=== PATIENT | male | born 1940 | race Caucasian/White ===

== ENCOUNTER 2018-07-17 07:35 | Emergency (ER) | payer MEDICARE, OTHER ==
[~2018-07-17] VITALS: Ht 188 cm; Wt 77.1 kg
--- OUTSIDE RECORDS SUMMARY | ~2018-07-17 | XMS | Encounter Summary ---
Demographics + + + | Address | [address] | | | [place] [address] | + + + | Home Phone | | + + + | Preferred Language | Unknown | + + + | Marital Status | | + + + | Faith Affiliation | 1077 | + + + | Race | Unknown | + + + | Ethnic Group | Unknown | + + + Author + + + | Author | [facility] | + + + | Organization | [facility] | + + + | Address | Unknown | + + + | Phone | Unavailable | + + + Support + + + + + | Name | Relationship | Address | Phone | + + + + + | Terri Vasquez | ELOISE | [address] | | | | | [place] | | | | | [address] | | + + + + + Care Team Providers + +------+ + | Care Furniture Sander Name | Role | Phone | + +------+ + | Man Rust MD | PCP | | + +------+ + Encounter Details +--------+ + + + + | Date | Type | Department | Care Team | Description | +--------+ + + + + | 05/31/ | Documentati | Pierre | Farideh Mccarty, | | | 2019 | on Only | [facility] | [address] | | | | | [address] | [place] | | | | | [place] | [address] | | | | | [address] | | | | | | [phone] | | | +--------+ + + + + Social History + +-------+ +--------+ + | Tobacco Use | Types | Packs/Day | Years | Date | | | | | Used | | + +-------+ +--------+ + | Former Smoker | | | | Quit: 08/28/1996 | + +-------+ +--------+ + + +---+---+---+ | Smokeless Tobacco: | | | | | Current User | | | | + +---+---+---+ + + +---------+ + | Alcohol Use | Drinks/We | oz/Week | Comments | | | ek | | | + + +---------+ + | Yes | | | | + + +---------+ + + + + | Sex Assigned at | Date Recorded | | | | + + + | Not on file | | + + + as of this encounter Plan of Treatment +--------+---------+ + + + | Date | Type | Specialty | Care Team | Description | +--------+---------+ + + + | 09/17/ | Office | Neurology | Farideh Mccarty, | | | 2019 | Visit | | MD Wendy Vasquez | | | | | | [place] | | | | | | [phone] | | | | | | | | +--------+---------+ + + + as of this encounter Visit Diagnoses Not on filein this encounter"
--- OUTSIDE RECORDS SUMMARY | ~2018-07-17 | XMS | Clinical Summary ---
Demographics + + + | Address | [address] | | | [place] [address] | + + + | Home Phone | | + + + | Preferred Language | Unknown | + + + | Marital Status | | + + + | Mandaeism Affiliation | 1077 | + + + | Race | Unknown | + + + | Ethnic Group | Unknown | + + + Author + + + | Author | [facility] | | | and [place] | + + + | Organization | [facility] | | | and [place] | + + + | Address | Unknown | + + + | Phone | Unavailable | + + + Support + + + + + | Name | Relationship | Address | Phone | + + + + + | Terri Vasquez | ELOISE | Unknown | | + + + + + | Mike Vasquez | ECON | Unknown | | + + + + + | Terri Vasquez | ECON | [address] | | | | | [place] | | | | | [address] | | + + + + + Care Team Providers + +------+ + | Care Intake Clinician Name | Role | Phone | + +------+ + | Man Rust MD | PP | Unavailable | + +------+ + Allergies + + + + + + | Active Allergy | Reactions | Severity | Noted | Comments | | | | | Date | | + + + + + + | Levofloxacin | Other (See Comments) | | 11/08/19 | Reaction not | | | | | 18 | specified in outside | | | | | | medical records | + + + + + + Medications + + + +---------+------+------+-------+ | Medication | Sig | Dispensed | Refills | Star | End | Statu | | | | | | t | Date | s | | | | | | Date | | | + + + +---------+------+------+-------+ | lovastatin | Take 20 mg by mouth | | 0 | 09/1 | | Activ | | (MEVACOR) 20 mg | Daily. | | | 3/20 | | e | | tablet | | | | 12 | | | + + + +---------+------+------+-------+ | | 1 drop into each eye | | 0 | 09/1 | | Activ | | brimonidine-timolol | twice daily | | | 3/20 | | e | | (COMBIGAN) 0.2-0.5% | | | | 12 | | | | ophthalmic solution | | | | | | | + + + +---------+------+------+-------+ | allopurinol | Take 300 mg by mouth | | 0 | 09/1 | | Activ | | (ZYLOPRIM) 300 mg | 2 times daily. | | | 3/20 | | e | | tablet | | | | 12 | | | + + + +---------+------+------+-------+ | amLODIPine | Take 5 mg by mouth | | 0 | 05/3 | | Activ | | (NORVASC) 5 mg | Daily. | | | 04/01 | | e | | tablet | | | | 12 | | | + + + +---------+------+------+-------+ | aspirin (ASPIRIN | Take 81 mg by mouth | | 0 | 11/11 | | Activ | | LOW DOSE) 81 MG | Daily. | | | 05/30 | | e | | tablet | | | | 12 | | | + + + +---------+------+------+-------+ | Multiple | Take 1 tablet by | | 0 | 11/11 | | Activ | | Vitamins-Minerals | mouth daily | | | 05/30 | | e | | (CENTRUM SILVER) | | | | 12 | | | | TABS | | | | | | | + + + +---------+------+------+-------+ | isosorbide | Take 1 tablet by | 30 | 0 | 11/12 | | Activ | | mononitrate (IMDUR) | mouth Daily. 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 | | | | | e | | capsule | | | | | | | + + + +---------+------+------+-------+ | Carlton-3 Fatty | Take by mouth | | 0 | | | Activ | | Acids (OMEGA 3 PO) | Daily. | | | | | e | + + + +---------+------+------+-------+ | Cholecalciferol | Take by mouth | | 0 | | | Activ | | (VITAMIN D-3) 1000 | Daily. | | | | | e | | units CAPS | | | | | | | + + + +---------+------+------+-------+ | albuterol (PROAIR | Inhale 2 puffs into | 1 | 10 | 12/2 | | Activ | | HFA) 90 mcg/puff | the lungs every 4 | Inhaler | | 2/20 | | e | | inhalerIndications: | hours as needed for | | | 15 | | | | Chronic obstructive | Shortness of Breath. | | | | | | | pulmonary disease, | | | | | | | | unspecified COPD | | | | | | | | type (HCC) | | | | | | | + + + +---------+------+------+-------+ | metoprolol | Take 25 mg by mouth | | 0 | | | Activ | | succinate | Daily. | | | | | e | | (TOPROL-XL) 25 mg 24 | | | | | | | | hr tablet | | | | | | | + + + +---------+------+------+-------+ | tiotropium | Inhale 18 mcg into | | 0 | | | Activ | | (SPIRIVA) 18 mcg | the lungs Daily as | | | | | e | | inhalation capsule | needed. | | | | | | + + + +---------+------+------+-------+ | warfarin | TAKE ONE TABLET BY | | 0 | | | Activ | | (COUMADIN) 5 mg | MOUTH 6 days and 03/14 | | | | | e | | tablet | tab on Mondays | | | | | | + + + +---------+------+------+-------+ | ergocalciferol | Take 50,000 Units by | | 0 | | | Activ | | (VITAMIN D-2) 50,000 | mouth Once a week. | | | | | e | | units capsule | FOR 8 WEEKS | | | | | | + + + +---------+------+------+-------+ Active Problems + + + | Problem | Noted Date | + + + | Osteoarthritis of spine with radiculopathy, cervical region | 04/30/2018 | + + + | Midline low back pain | 04/30/2018 | + + + | Dizzy spells | 04/30/2018 | + + + | Kyphosis of cervical region | 03/22/2018 | + + + | Neck pain, chronic - midline | 11/16/2017 | + + + | DDD (degenerative disc disease), cervical | 11/16/2017 | + + + | Asbestos-induced pleural plaque | 08/01/2016 | + + + | COPD, severe | 03/19/2015 | + + + | Lobular atelectasis | 03/03/2015 | + + + + + | Overview: Rounded from asbestos | + + + + + | Hyperlipidemia | 04/01/2013 | + + + | Coronary arteriosclerosis in [place] artery | 04/01/2013 | + + + | Arteriosclerotic cardiovascular disease (ASCVD) | 08/09/2012 | + + + | Diverticular disease of colon | 09/14/2009 | + + + + + | Overview: BECCA [id number] Decision | + + + + + | PROSTATIC DISORDER | 09/14/2009 | + + + | ABDOMINAL BLOATING | 09/14/2009 | + + + | SLEEP APNEA, OBSTRUCTIVE | | + + + | ASBESTOS EXPOSURE, HX OF | | + + + Resolved Problems + + + + | Problem | Noted | Resolved | | | Date | Date | + + + + | Cough | 07/05/19 | | | | 14 | 5 | + + + + | BRONCHITIS, CHRONIC | | | | | | 6 | + + + + | Dyspnea on exertion | | | | | | 5 | + + + + | 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 | | | | | | 5 | + + + + + + | Overview: ICD-10 Record update | + + + +---+ + | COPD | | | | | | 6 | + +---+ + | ABNORMAL CHEST XRAY | | | | | | 5 | + +---+ + | Shortness of breath | | | | | | 6 | + +---+ + | Obstructive chronic bronchitis with exacerbation | | | | | | 5 | + +---+ + | Other nonspecific abnormal finding of lung field | | | | | | 5 | + +---+ + | Abnormal sputum | | | | | | 5 | + +---+ + Encounters +--------+ + + + + | Date | Type | Specialty | Care Team | Description | +--------+ + + + + | 04/30/ | Hospital | | Irving Hernandez, | Chronic midline low | | 2018 | Encounter | | PA-C | back pain without | | | | | | sciatica | +--------+ + + + + | 04/30/ | Office | | Irving Hernandez, | Kyphosis of cervical | | 2019 | Visit | | PA-C | region, unspecified | | | | | | kyphosis type | | | | | | (Primary Dx); | | | | | | Osteoarthritis of | | | | | | spine with | | | | | | radiculopathy, | | | | | | cervical region; | | | | | | Chronic midline low | | | | | | back pain without | | | | | | sciatica; Dizzy | | | | | | spells | +--------+ + + + + | 04/30/ | Telephone | | Irving Hernandez, | Results, Imaging | | 2019 | | | PA-C | (Lumbar XR ) | +--------+ + + + + from Last 3 Months Immunizations + + + + | Name | Dates Previously Given | Next Due | + + + + | INFLUENZA 65 Y OR >, | 02/01/2015 | | | TRIVALENT HIGH-DOSE | | | + + + + | INFLUENZA PF 18 Y OR | 12/28/2013, 12/23/2012, 01/09/2012 | | | >,TRIVALENT | | | | RECOMBINANT | | | + + + + | PNEUMOCOCCAL | 02/01/2015 | | | CONJUGATE 13-VALENT | | | | (PCV13) | | | + + + + | PNEUMOCOCCAL | 06/09/2011 | | | POLYSACCHARIDE | | | | 23-VALENT (PPSV23) | | | + + + + | TDAP, (ADOL/ADULT) | 01/09/2012, 12/05/2011 | | + + + + | ZOSTER, 1 DOSE | 01/09/2012 | | | (ZOSTAVAX) | | | + + + + Family History + + +---------+ + | Medical History | Relation | Name | Comments | + + +---------+ + | Emphysema | Brother | | | + + +---------+ + | Lung cancer | Mother | | | + + +---------+ + | No known problems | Son | Mike | | | | | Vasquez | | + + +---------+ + + +---------+ + + | Relation | Name | Status | Comments | + +---------+ + + | Brother | | | | + +---------+ + + | Father | | | | + +---------+ + + | Mother | | | | + +---------+ + + | Son | Mike | Alive | | | | Vasquez | | | + +---------+ + + Social History + + + +--------+ + | Tobacco Use | Types | Packs/Day | Years | Date | | | | | Used | | + + + +--------+ + | Former Smoker | Cigarettes | 1.5 | 40 | Quit: 02/08/1997 | + + + +--------+ + + +------+---+---+ | Smokeless Tobacco: | Chew | | | | Current User | | | | + +------+---+---+ + + | Tobacco Cessation: Ready to Quit: No; Counseling Given: No | + + + + +---------+ + | Alcohol Use | Drinks/We | oz/Week | Comments | | | ek | | | + + +---------+ + | Yes | 0 | 0.0 | 4 beers/day | | | Standard | | | | | drinks or | | | | | | | | | | equivalen | | | | | t | | | + + +---------+ + + + + | Sex Assigned at | Date Recorded | | | | + + + | Not on file | | + + + + + + + | Job Start Date | Occupation | Industry | + + + + | Not on file | Not on file | Not on file | + + + + + + + + | Travel History | Travel Start | Travel End | + + + + + + | No recent travel history available. | + + Last Filed Vital Signs + + + + | Vital Sign | Reading | Time Taken | + + + + | Blood Pressure | 130/69 | 04/30/2018 1027 PST | + + + + | Pulse | 82 | 04/30/2018 1027 PST | + + + + | Temperature | - | - | + + + + | Respiratory Rate | 14 | 08/19/2014 0936 PDT | + + + + | Oxygen Saturation | 95% | 09/17/2015 1300 PDT | + + + + | Inhaled Oxygen | - | - | | Concentration | | | + + + + | Weight | 79.8 kg (176 lb) | 04/30/2018 1027 PST | + + + + | Height | 185.4 cm (6' 1") | 04/30/2018 1027 PST | + + + + | Body Mass Index | 23.22 | 04/30/2018 1027 PST | + + + + Plan of Treatment + + + + + | Health Maintenance | Due Date | Last Done | Comments | + + + + + | Vaccine: Zoster (2 | | 01/09/2012, 12/09/2011 | | | of 3) | 2 | | | + + + + + | Adult Annual | | | | | Wellness Visit | 5 | | | + + + + + | Vaccine: Influenza | | 12/20/2016, 02/01/2015, | | | (Season Ended) | 9 | 12/28/2013, Additional history | | | | | exists | | + + + + + | Vaccine: | | 01/09/2012, 12/05/2011 | | | Dtap/Tdap/Td (3 - | 2 | | | | Td) | | | | + + + + + | Vaccine: | Completed | 02/01/2015, 06/09/2011 | | | Pneumococcal 65+ | | | | | Low/Medium Risk | | | | + + + + + Goals + +--------+ + + + + | Goal | Patien | Associated | Recent Progress | Patient- | Author | | | t Goal | Problems | | Stated? | | | | Type | | | | | + +--------+ + + + + | Exercise 3x per week | Exerci | | | No | [place] | | (30 min per time) | se | | | | , Dave | | | | | | | S, MD | + +--------+ + + + + Procedures + +--------+ + + + | Procedure Name | Priori | Date/Time | Associated Diagnosis | Comments | | | ty | | | | + +--------+ + + + | XR LUMBAR SPINE 4 + | Routin | 04/30/2018 | Chronic midline | Results for this | | VW | e | 11:34 PST | low back pain | procedure are in the | | | | | without sciatica | results section. | + +--------+ + + + from Last 3 Months Results XR Lumbar Spine 4 + Vw (04/30/2018 11:34 PST) + + | Specimen | + + | | + + + + + | Narrative | Performed At | + + + | XR LUMBAR SPINE 4 + VW 04/30/2018 11:33 AM HISTORY: low back | [facility] | | pain. COMPARISON: 08/01/2017 FINDINGS: Dextroconvex scoliosis | | | of the lower thoracic and lumbar spine. Mild grade 1 right lateral | | | listhesis of L3 over L4. Multilevel disc space narrowing which is | | | moderate at L3-L4 and L4-L5 with moderate disc marginal osteophytosis | | | and facet spondylosis at these levels. No evidence of dynamic | | | listhesis on flexion and extension views. Subtle superior endplate | | | compression deformities of T12 and L1 which are stable. Aortic | | | calcifications are present. IMPRESSION - Moderate to severe | | | degenerative disease L4-L5. Moderate spondylosis at L3-L4. | | | Dextroconvex scoliosis with grade 1 right lateral listhesis of L3 over | | | L4. No evidence of dynamic listhesis. Chronic superior | | | endplate compression deformity fractures of T12 and L1. Dictated | | | and Signed by: Robbie Mar MD Electronically signed: 04/30/2018 | | | 12:05 PM | | + + + + + | Procedure Note | + + | Yg, Rad Results In - 04/30/2018 1208 PST XR LUMBAR SPINE 4 + [facility] 04/30/2018 11:33 AM | | | | HISTORY: low back pain. | | | | COMPARISON: 08/01/2017 | | | | FINDINGS: Dextroconvex scoliosis of the lower thoracic and lumbar spine. Mild | | grade 1 right lateral listhesis of L3 over L4. Multilevel disc space narrowing | | which is moderate at L3-L4 and L4-L5 with moderate disc marginal osteophytosis | | and facet spondylosis at these levels. No evidence of dynamic listhesis on | | flexion and extension views. Subtle superior endplate compression deformities of | | T12 and L1 which are stable. Aortic calcifications are present. | | | | IMPRESSION - | | Moderate to severe degenerative disease L4-L5. | | | | Moderate spondylosis at L3-L4. | | | | Dextroconvex scoliosis with grade 1 right lateral listhesis of L3 over L4. | | | | No evidence of dynamic listhesis. | | | | Chronic superior endplate compression deformity fractures of T12 and L1. | | | | Dictated and Signed by: Robbie Mar MD | | Electronically signed: 04/30/2018 12:05 PM | + + + +---------+ + + | Performing | Address | City[facility] | Phone Number | | Organization | | | | + +---------+ + + | [facility] | | | | + +---------+ + + from Last 3 Months Insurance + +--------+ +--------+-------+---------+--------+ | Payer | Benefi | Subscriber | Effect | Phone | Address | Type | | | t Plan | ID | perla | | | | | | / | | Dates | | | | | | Group | | | | | | + +--------+ +--------+-------+---------+--------+ | [facility] | [facility] | [id number] | 03/13/19 | | | Medica | | MEDICARE PPO | HEALTH | | 19-Pre | | | re | | | CARE | | sent | | | | | | MDCR | | | | | | | | PPO | | | | | | + +--------+ +--------+-------+---------+--------+ + +--------+ +--------+ + + | Guarantor Name | Accoun | Relation to | Date | Phone | Billing Address | | | t Type | Patient | of | | | | | | | | | | + +--------+ +--------+ + + | Solo Vasquez | Person | Self [birth year] | [address] | | | al/Fam | | 1941 | [phone] | [place] | | | [place] | | | [address] (Home) | [address] | + +--------+ +--------+ + + Advance Directives Patient has advance care planning documents on file. For more information, please contact:[facility] [place] [address]
--- OUTSIDE RECORDS SUMMARY | ~2018-07-17 | XMS | Encounter Summary ---
Demographics + + + | Address | [address] | | | [place] [address] | + + + | Home Phone | | + + + | Preferred Language | Unknown | + + + | Marital Status | | + + + | Presybeterian Affiliation | 1077 | + + + | Race | Unknown | + + + | Ethnic Group | Unknown | + + + Author + + + | Author | [facility] | + + + | Organization | [facility] | + + + | Address | Unknown | + + + | Phone | Unavailable | + + + Support + + + + + | Name | Relationship | Address | Phone | + + + + + | Terri Vasquez | ELOISE | [address] | | | | | [place] | | | | | [address] | | + + + + + Care Team Providers + +------+ + | Care Strategic Partnership Manager Name | Role | Phone | + +------+ + | Andrea Morris MD | PCP | | + +------+ + Reason for Visit + + + | Reason | Comments | + + + | Follow-up | 6 month | + + + Encounter Details +--------+---------+ + + + | Date | Type | Department | Care Team | Description | +--------+---------+ + + + | 07/10/ | Office | [facility] | E[place], Freeman N, | Atherosclerosis of | | 2019 | Visit | [facility] | [address] | [place] [facility] | | | | [address] | [place] [address] | artery of [place] | | | | [place], [place] | [phone] | heart without angina | | | | [address] | | pectoris (Primary | | | | [phone] | | Dx) | +--------+---------+ + + + Social History + +-------+ [...] + + + as of this encounter Last Filed Vital Signs + + + + | Vital Sign | Reading | Time Taken | + + + + | Blood Pressure | 120/60 | 07/10/2018 1:43 PM PDT | + + + + | Pulse | 72 | 07/10/2018 1:43 PM PDT | + + + + | Temperature | - | - | + + + + | Respiratory Rate | - | - | + + + + | Oxygen Saturation | 96% | 07/10/2018 1:43 PM PDT | + + + + | Inhaled Oxygen | - | - | | Concentration | | | + + + + | Weight | 72.2 kg (159 lb 3.2 | 07/10/2018 1:43 PM PDT | | | oz) | | + + + + | Height | 188 cm (6' 2") | 07/10/2018 1:43 PM PDT | + + + + | Body Mass Index | 20.44 | 07/10/2018 1:43 PM PDT | + + + + in this encounter Progress Notes Freeman Santos MD - 07/10/2018 1:30 PM PDTFormatting of this note may be different from the original. CARDIOVASCULAR NEW PATIENT : 1940 DATE OF SERVICE: 07/10/2018 PROVIDER: FREEMAN SANTOS MD PRIMARY CARE: ANDREA MORRIS REASON FOR CONSULTATION: Chief Complaint Patient presents with Follow-up 6 month HPI: He is here for 6-month followup. No new issues. He is compliant with medicines. No sympt oms of angina, heart failure, arrhythmia, claudication or TIA-type symptoms. He has had some problems with the balance and gait. PH, FH, SH, and medications reviewed in the chart. PAST MEDICAL HISTORY: History reviewed. No pertinent past medical history. Past Surgical History Procedure Laterality Date APPENDECTOMY BACK SURGERY FAMILY HISTORY: Family History Problem Relation Age of Onset Cancer Mother lung cancer, at age 65 Cancer Sister lung cancer, at approx 60years SOCIAL HISTORY: Social History Social History Marital status: Spouse name: N/A Number of children: N/A Years of education: N/A Occupational History Not on file. Social History Main Topics Smoking status: Former Smoker Quit date: 08/28/1996 Smokeless tobacco: Current User Alcohol use Yes Drug use: No Sexual activity: Not on file Other Topics Concern Not on file Social History Narrative No narrative on file CURRENT MEDICATIONS: Outpatient Encounter Prescriptions as of 07/10/2018 Medication Sig Dispense Refill albuterol (PROAIR HFA) 108 (90 Base) MCG/ACT inhaler Inhale 2 puffs into the lungs. allopurinol (ZYLOPRIM) 300 MG tablet Take 300 mg by mouth 2 (two) times daily. amLODIPine (NORVASC) 5 MG tablet Take 5 mg by mouth daily. aspirin 81 MG EC tablet Take 81 mg by mouth daily. beclomethasone (QVAR) 80 MCG/ACT inhaler Inhale 1 puff into the lungs daily. brimonidine-timolol (COMBIGAN) 0.2-0.5 % ophthalmic solution Place 1 drop into both eye s every 12 (twelve) hours. Cholecalciferol (VITAMIN D-3 PO) Take 2,000 Units by mouth daily. lovastatin (MEVACOR) 20 MG tablet Take 20 mg by mouth nightly. metoprolol (TOPROL-XL) 25 MG 24 hr tablet Take 25 mg by mouth. Multiple Vitamins-Minerals (CENTRUM SILVER ADULT 50+ PO) Take by mouth. Stem-3 Fatty Acids (OMEGA 3 PO) Take by mouth daily. omeprazole (PRILOSEC) 20 MG capsule Take 20 mg by mouth every morning before breakfast. tiotropium (SPIRIVA) 18 MCG inhalation capsule Inhale 18 mcg into the lungs daily. warfarin (COUMADIN) 5 MG tablet Take 5 mg by mouth daily. isosorbide mononitrate (IMDUR) 30 MG 24 hr tablet take 1 tablet by mouth once daily (Immanuel ramirez not taking: Reported on 07/10/2018) 90 tablet 1 metoprolol (LOPRESSOR) 100 MG tablet Take 100 mg by mouth daily. tamsulosin (FLOMAX) 0.4 MG capsule Take 0.4 mg by mouth After dinner. Administer 30 mi nutes after the same meal each day. Capsules should be swallowed whole; do not crush, chew, or open No facility-administered encounter medications on file as of 07/10/2018. ALLERGIES: Levofloxacin REVIEW OF SYSTEMS: Review of Systems Constitutional: Negative for unexpected weight change. Respiratory: Negative for cough and shortness of breath. Cardiovascular: Negative. Gastrointestinal: Negative for diarrhea. Endocrine: Negative. Musculoskeletal: Positive for gait problem. Allergic/Immunologic: Negative. Neurological: Positive for dizziness and speech difficulty. Hematological: Bruises/bleeds easily. Psychiatric/Behavioral: Negative. All other systems reviewed and negative. PHYSICAL EXAM: VITAL SIGNS: BP 120/60 (BP Location: Right upper arm, Patient Position: Sitting) | Pulse 7 2 | Ht 1.88 m (6' 2") | Wt 72.2 kg (159 lb 3.2 oz) | SpO2 96% | BMI 20.44 kg/m GENERAL - Well developed, well-nourished, appears stated age, in no acute distress. HEENT - Normocephalic, atraumatic. No arcus senillis, no scleral icterus. NECK - Supple. No thyromegaly. CARDIOVASCULAR - No JVD, no carotid bruit, . Carotid upstroke normal bilaterally. irRegular rate and rhythm. No rub. No murmur. No gallop. Normal S1 and S2. CHEST - Nontender. LUNGS - Clear to auscultation. No wheezing, no crackles, no rales, no rhonchi and normal re spiratory rate and rhythm. EXTREMITIES - No edema, clubbing or cyanosis. No deformities, no tenderness, and no discolo ration or ulceration. NEURO/PSYCH - Alert and oriented x3, mood and affect appropriate. No obvious focal motor or sensory deficits. Cranial nerves are grossly intact. MUSCULOSKELETAL - No muscle spasms, no muscle atrophy and no joint deformities. SKIN - No pallor, no jaundice, no cyanosis. IMPRESSION 1. History of two-vessel and branch vessel coronary artery disease by angiography in 2005. No prior intervention. 2. Atrial fibrillation. Controlled ventricular response. Duration unknown. Asymptomatic. 3. Hypertension, controlled. 4. Sleep apnea treated with CPAP. 5. Chronic bronchitis. 6. COPD. 7. Asbestos-related lung disease. PLAN Continue low-dose aspirin, warfarin, amlodipine, metoprolol, and lovastatin. We will in 1 year or sooner if problems. I have asked him to speak with his PCP about seeing a neurologist for his balance problems. Cardiac Medications: Continue as prescribed. Freeman Santos MD FACC, FACP, FASNC in this encounter Plan of Treatment +--------+---------+ + + + | Date | Type | Specialty | Care Team | Description | +--------+---------+ + + + | 09/17/ | Office | Neurology | Farideh Mccarty, | | | 2019 | Visit | | MD Wendy Vasquez | | | | | | Dr [place] | | | | | | [address] | | | | | | | | +--------+---------+ + + + as of this encounter Visit Diagnoses + + | Diagnosis | + + | Atherosclerosis of [place] coronary artery of [place] heart without angina pectoris - | | Primary | + +
--- OUTSIDE RECORDS SUMMARY | ~2018-07-17 | XMS | Encounter Summary ---
Demographics + + + | Address | [address] | | | [place] [address] | + + + | Home Phone | | + + + | Preferred Language | Unknown | + + + | Marital Status | | + + + | Islam Affiliation | 1077 | + + + | Race | Unknown | + + + | Ethnic Group | Unknown | + + + Author + + + | Author | [facility] | + + + | Organization | [facility] | + + + | Address | Unknown | + + + | Phone | Unavailable | + + + Support + + + + + | Name | Relationship | Address | Phone | + + + + + | Terri Vasquez | ELOISE | [address] | | | | | [place] | | | | | [address] | | + + + + + Care Team Providers + +------+ + | Care Motion Picture Equipment Machinist Name | Role | Phone | + [...] + | 07/10/ | Office | [facility] | [place], Freeman N, | Atherosclerosis of | | 2019 | Visit | [facility] | [address] | [place] [facility] | | | | [address] | [place] [address] | artery of [place] | | | | [place], [place] | [phone] | heart without angina | | | | [address] | | pectoris (Primary | | | | [phone] | | Dx) | +--------+---------+ + + [...] SILVER ADULT 50+ PO) Take by mouth. [place]-3 Fatty Acids (OMEGA 3 PO) Take by [...] | | | | | Dr [place] | | | | | | [address] | | | | | | | | +--------+---------+ + + + as of this encounter Visit Diagnoses + + | Diagnosis | + + | Atherosclerosis of [place] coronary artery of [place] heart without angina pectoris - | | Primary | + +
--- OUTSIDE RECORDS SUMMARY | ~2018-07-17 | XMS | Encounter Summary ---
Demographics + + + | Address | [address] | | | [place] [address] | + + + | Home Phone | | + + + | Preferred Language | Unknown | + + + | Marital Status | | + + + | Judaism Affiliation | 1077 | + + + | Race | Unknown | + + + | Ethnic Group | Unknown | + + + Author + + + | Author | [facility] | | | and [place] | + + + | Organization | [facility] | | | and [place] | + + + | Address | Unknown | + + + | Phone | Unavailable | + + + Support + + + + + | Name | Relationship | Address | Phone | + + + + + | Terri Vasquez | ECON | Unknown | | + + + + + | Mike Vasquez | ECON | Unknown | | + + + + + | Terri Vasquez | ECON | [address] | | | | | [place] | | | | | [address] | | + + + + + Care Team Providers + +------+ + | Care Feed Mixer Name | Role | Phone | + +------+ + | Man Rust MD | PCP | Unavailable | + +------+ + Reason for Referral Evaluate & Treat (Routine) +--------+ + + + + + | Status | Reason | Specialty | Diagnoses / | Referred By | Referred To | | | | | Procedures | Contact | Contact | +--------+ + + + + + | Closed | Specialty | Pain Medicine | Diagnoses | David, | Dejon, | | | Services | | Kyphosis of | SANTI Villatoro | MD Rob | | | Required | | cervical | [address] | | | | | region, | [address] | [address] | | | | | unspecified | [address] | [place] | | | | | kyphosis | [place], | [address] | | | | | type | [place] [address] | Phone: | | | | | Osteoarthrit | Phone: | [phone] | | | | | is of spine | [phone] | Fax: | | | | | with | Fax: | [phone] | | | | | radiculopath | [phone] | | | | | | y, cervical | | | | | | | region | | | +--------+ + + + + + Reason for Visit + + + | Reason | Comments | + + + | Follow-up | Neck/Back Pain | + + + Encounter Details +--------+---------+ + + + | Date | Type | Department | Care Team | Description | +--------+---------+ + + + | 04/30/ | Office | [facility] | Irving Hernandez, | Kyphosis of cervical | | 2019 | Visit | PHYSIATRY [address] | PA-C [address] | region, unspecified | | | | [place], | [address] [place] | kyphosis type | | | | [place] [address] | [place] [address] | (Primary Dx); | | | | [phone] | [phone] | Osteoarthritis of | | | | | | spine with | | | | | | radiculopathy, | | | | | | cervical region; | | | | | | Chronic midline low | | | | | | back pain without | | | | | | sciatica; Dizzy | | | | | | spells | +--------+---------+ + + + Social History + + + [...] | | | + +------+---+---+ + + +---------+ + | Alcohol Use [...] recent travel history available. | + + documented as of this encounter Last Filed Vital [...] + + + | Oxygen Saturation | - | - | + + + + | Inhaled [...] 1027 PST | + + + + documented in this encounter Patient Instructions Patient Instructions Irving Hernandez PA-C - 04/30/2018 10:33 PSTFormatting of this note milagroh t be different from the original. Must be cleared by nicker/coumadin provider prior to cervical facet injections. Back xray ordered today. We will call with results. Cervical Facet pain and penitentiary relief: RFA (radiofrequency ablation) can relieve symptoms for 1-[address] Ashford in the [facility] offers this service. Referral placed today. Talk with PCP regarding blood pressure medications and dizziness. --------- Facet Pain: Visit this web link for a short, and informative video: [email or web address] The facet joint is located when the vertebrae (bones of the spine) connect to each other. Pain occurs with extension and rotation of the spine (bending backwards and rotating), bend ing over and lifting a heavy load, standing, first things in the morning. Images of the spi ne show facet arthritis, fluid in the facet joints. Treatment included rest, anti-inflammat ories, physical therapy focusing on core strengthening, facet steroid injections. Steroids are a very strong anti-inflammatory, this helps reduce pain by reducing swelling. Complications of steroids are bleeding, infection, and an increase of blood sugars if you are diabetic. MCFP risk can lead to osteoporosis which is why we limited the number of injections to 3 times per year. Facet joints are located when the vertebrae (bones of the spine) connect to each other. Typically these joints can have arthritis in this and give a person centralized low back pain. The procedure takes about 20 minutes. You lie on your b ack and x-rays are taken. Once the region is localized, it is numbed and then injected with steroid. Radiofrequency Ablation (RFA) Burning of the nerves: This procedure is typically done when the steroid injections give excellent initial relief but does not last long. It is the same procedure as the steroid injections however it take s approximately 2 hours to complete. A needle is placed inside the facet joints and then co nnected to a battery pack which heats up the needle to burn the nerves inside the joint. Yo u must not eat after midnight the night before as you are put into procedural sedation where you can hear and talk but do not feel pain. You must have a petroleum transport driver to get home from the hospital. You will feel more bruising pain to the location of the needles for approxima tely 4-5 days after this procedure, but once that clears up, you should be pain free for 8 m onths to 2 years, depends on when the nerve grows back. Common Spine and Disk Problems The most common serious back problemshappen when disks tear, bulge, or rupture. In such c ases, an injured disk can no longer cushion the vertebrae and absorb shock. As a result, the rest of your spine may also weaken. This can lead to pain, stiffness, and other symptoms. Torn annulus Contained herniated disk Extruded herniated disk Torn annulus. A sudden movement may cause a tiny tear in an annulus. Nearby ligaments ma y stretch. Contained herniated disk. As a disk wears out, the nucleus may bulge into the annulus an d press on nerves. Extruded herniateddisk. When a disk ruptures, its nucleus can squeeze out and irritate a nerve. Arthritis Instability Spondylolisthesis Arthritis. As disks wear out over time, bone spurs form. These growths can irritate nerv es and inflame facets. Instability. As a disk stretches, the vertebrae slip back and forth. This can put pressu re on the annulus. Spondylolisthesis.Listhesis is a condition in which one vertebra has moved forward or backward, in relation to the one above or below it. Thiscauses a crack (stress fracture) i n the areas that link the vertebrae together. This may put pressure on the annulus, stretch the disk, and irritate nerves. Date Last Reviewed: 12/28/201419991571-2881 [employer]. [address] [place] [address], [place] [address]. All righ ts reserved. This information is not intended as a substitute for professional medical care. Always follow your healthcare professional's instructions. documented in this encounter Progress Notes Irving Hernandez PA-C - 04/30/2018 1040 PSTFormatting of this note might be different from graham arriaga original. [address] [facility] [place], [place] [address] FAX: PHYSICAL MEDICINE AND REHABILITATION H&P CHIEF COMPLAINT: Chief Complaint Patient presents with Follow-up Neck/Back Pain HISTORY OF PRESENT ILLNESS: The patient is a 77 y.o. male being seen today for complaints of continued neck pain. Patient had cervical facet injections on 12/19/17. The levels targe hernan were left C4-5 and right C5-6. Patient reports approximately 75-100% relief for the fir st 1+ months, per pain log. He does report that pain has began to return over the last yael h. This has been a chronic and worsening issue. Neck symptoms started around 12 months ago . Since the symptoms began, he has noticed that symptoms have been intermittent, occasional a nd daily. He describes the pain as a aching, burning, dull, shooting and throbbing feeling. He rates the pain as moderate. His symptoms worsen with looking up and rotation to the left. His symptoms improve with icy hot application. His most comfortable position is to lie on his back with his head slightly elevated to watch television. He reports his neck pain is localized in the center and does not radiate at this time. He does notice intermittent radi ation and paresthesias however this is mild. Solo Hamilton Vasquez does not report arm or hand symptoms. The patient does not describe numbness of the arms. He does not report weakness of the ar ms. He does not have bowel and bladder dysfunction. He does not have saddle anesthesia. Patient also has secondary complaint of lower back pain. He denies any radiation, or leg w eakness. He describes the pain as aching in the midline low back region. He denies bowel o r bladder incontinence. He does have hx of multiple lumbar surgeries. Patient has tertiary complaint of dizziness. He reports he has lost significant weight in t he past year and has had no changes to blood pressure medications. He reports that he is mos t dizzy when standing from a seated posisition. He denies any falls but does report several episodes of almost falling and catching himself on collins/furniture. Patient is currently katie ing coumadin. Treatments for these complaints have included physical therapy. Last physical therapy sessi on was September 2017 without benefit. [place] [facility]. Patient's medications, allergies, past medical, surgical, social and family histories were reviewed and updated as appropriate. PAST MEDICAL HISTORY: Past Medical History: Diagnosis Date Asbestos exposure Atrial fibrillation (HCC) Broken arm Carotid arterial disease (HCC) Cervical radiculopathy COPD (chronic obstructive pulmonary disease) (HCC) possible Depression Glaucoma Gout Heart attack (HCC) x3 Hyperlipidemia Hypertension Low back pain Lung mass RLL, ? rounded atelectasis Myocardial infarction (HCC) 09/09/2005 Obstructive sleep apnea on CPAP Peptic ulcer disease PAST SURGICAL HISTORY: Past Surgical History: Procedure Laterality Date APPENDECTOMY LAMINECTOMY 3 SHOULDER SURGERY Right CURRENT MEDICATIONS: Current Outpatient Prescriptions Medication Sig Dispense Refill albuterol (PROAIR HFA) 90 mcg/puff inhaler Inhale 2 puffs into the lungs every 4 hours as needed for Shortness of Breath. (Patient taking differently: Inhale 2 puffs into the lung s EVERY 4 TO 6 HOURS NEEDED for Shortness of Breath.) 1 Inhaler 10 allopurinol (ZYLOPRIM) 300 mg tablet Take 300 mg by mouth 2 times daily. (Patient nola zamorano differently: Take 600 mg by mouth Daily.) amLODIPine (NORVASC) 5 mg tablet Take 5 mg by mouth Daily. aspirin (ASPIRIN LOW DOSE) 81 MG tablet Take 81 mg by mouth Daily. brimonidine-timolol (COMBIGAN) 0.2-0.5% ophthalmic solution 1 drop into each eye twice daily Cholecalciferol (VITAMIN D-3) 1000 units CAPS Take by mouth Daily. ergocalciferol (VITAMIN D-2) 50,000 units capsule Take 50,000 Units by mouth Once a wee k. FOR 8 WEEKS isosorbide mononitrate (IMDUR) 30 mg 24 hr tablet Take 1 tablet by mouth Daily. Indicat ions: Chronic Angina Pectoris 30 tablet 0 lovastatin (MEVACOR) 20 mg tablet Take 20 mg by mouth Daily. metoprolol succinate (TOPROL-XL) 25 mg 24 hr tablet Take 25 mg by mouth Daily. Multiple Vitamins-Minerals (CENTRUM SILVER) TABS Take 1 tablet by mouth daily [place]-3 Fatty Acids (OMEGA 3 PO) Take by mouth Daily. omeprazole (PRILOSEC) 20 mg capsule Take 20 mg by mouth Daily. tiotropium (SPIRIVA) 18 mcg inhalation capsule Inhale 18 mcg into the lungs Daily as ne eded. warfarin (COUMADIN) 5 mg tablet TAKE ONE TABLET BY MOUTH 6 days and 1/2 tab on Mondays No current facility-administered medications for this visit. ALLERGIES: Allergies Allergen Reactions Levofloxacin Other (See Comments) Reaction not specified in outside medical records SOCIAL HISTORY: The patient reports that he quit smoking about 21 years ago. His smoking use included Ciga rettes. He has a 60.00 pack-year smoking history. His smokeless tobacco use includes Chew. Jesi arriaga reports that he drinks alcohol. He reports that he does not use drugs. FAMILY HISTORY: Family History Problem Relation Age of Onset Lung cancer Mother Emphysema Brother No Known Problems Son REVIEW OF SYSTEMS: GENERALLY: No fever, chills, no night sweats, no weight gain, no weight loss, no anemia, no fatigue. EYES: +eye problems, no impaired sight, +eye glasses/contacts, no eye injury, no double vi deysi, no transient blindness. EARS, NOSE, THROAT and MOUTH: No change in sense taste/smell, no hearing difficulty, no ri nging in ears, no drainage from ears, no ear injury, no dizziness, no voice change, no diffi culty swallowing, +snoring, +sleep apnea/CPAP, no sinus trouble, no dental work. NEUROMUSCULAR: No numbness/pain of arms, no numbness/pain of legs, no awake with numbness/ pain, no weakness, no muscle aching, no coordination difficulty, no change in walk, no head injury, no neck injury, +back injury, +pain in neck, +pain in back, no stroke, no fainting s pells, no loss of consciousness, no tremor/shaking, no seizures, no headaches, no migraines, no memory loss, no speech difficulty, no confusion, no numbness of face. PSYCHIATRIC: No depression, no difficulty sleeping, no anxiety, no bipolar disorder. CARDIOVASCULAR/PULMONARY: No heart attack, no heart murmur, no fluttering heart, no shortn ess of breath, no cough, no Tuberculosis, no chest pain, no swelling ankles, no bloody cough ing, no asthma, no COPD/emphysema. GASTROINTESTINAL: No bowel disease, no nausea/vomiting, no rectal bleeding/hemorroids, no constipation, no fecal/stool incontinence, no liver/gallbladder disease, no abdominal pain. KIDNEY DISEASE: No frequent urination, no painful/difficult with urination, no urinary inco ntinence, no bladder problems, no impotence, no irregular period, no vaginal discharge. ENDOCRINE: No diabetes, no thyroid disease, no osteoporosis/osteopenia, no drainage from br easts. INTEGUMENTARY/SKIN: No lump in breasts, no skin disease or skin changes, no rash/itch. HEMATOLOGIC: No enlarged lymph nodes, no ease or unusual bleeding, no cancer. RHEUMATOLOGIC: No joint pain/arthritis, no Rheumatoid Arthritis PHYSICAL EXAMINATION: Vitals: 04/30/18 1027 BP: 130/69 Pulse: 82 PainSc: 5 PainLoc: Neck Body mass index is 23.22 kg/m. GENERAL: The patient is well developed and well nourished. He does not appear uncomfortabl e when seated. HEENT: HEAD/FACE: EYES: EARS: NASOPHARNYX: OROPHARNYX: Normocephalic and atraumatic. There are no areas of recent trauma. Normal sclerae without icterus. No drainage or tenderness. Clear without drainage. Clear without erythema. SKIN Limited skin exam shows no significant rashes or lesions. There are not scars in the cervical region. CHEST: The patient is in no acute respiratory distress with unlabored respirations. HEART: There is not lower extremity edema. ABDOMEN: The patient is not overweight. NEUROLOGIC: The patient is awake, alert, and oriented to time, place, person. He follows simple and complex commands. His speech is fluent. He comprehends speech well. He has no apparent deficits with short or termite treater memory. He has appropriate fund of knowledge Cranial nerves 2-12 appear grossly intact. Sensory exam does not show diminished sensation to light touch in the lower extremities. REFLEX: RIGHT LEFT BICEPS 1+ 1+ BRACHIORADIALIS 1+ 1+ TRICEPS 1+ 1+ PATELLAR 1+ 1+ ACHILLES 1+ 1+ Patient was unsteady when asked to stand. MUSCULOSKELETAL There is no tenderness in the midline of the cervical or thoracic spine. T here is no major palpable deformity of the spine. Range of motion testing of the cervical spine was unremarkable, with exception to neck exte nsion which caused a sharp pain in back of neck. Spurling sign was negative. Bilateral UE and LE strength 5/5. Shoulder examination shows well preserved range of motion with external rotation, internal rotation and abduction. Impingement testing was Negative. Gait: unsteady using wall at times for balance. RADIOGRAPHIC REVIEW: The patient's imaging was reviewed in detail with the patient today during the visit. Lumb ar MRI from 2018 shows reversal of the normal cervical lordosis. He has kyphosis and severe facet arthritis with hypertrophy on the left at C4-C5 and on the right at C5-C6, there is a lso significant left foraminal stenosis at C4-C5 and moderate right foraminal stenosis at C5 -C6. ASSESSMENT: 1. Kyphosis of cervical region, unspecified kyphosis type 2. Osteoarthritis of spine with radiculopathy, cervical region 3. Chronic midline low back pain without sciatica 4. Dizzy spells PLAN: 1) Today we discussed the patient's differential diagnosis with the likely primary issue be ing CERVICAL SPONDYLOSIS, dizziness, chronic low back pain. Patient's description of symptom s, physical exam, and imaging suggest this diagnosis at this time. 2) I counseled patient on treatment options which included conservative self management usi ng OTC NSAIDs/Ice and heat packs, physical therapy, prescription medications, epidural stero id injection, as well as possible surgical intervention. 3) Imaging: As descibed above in radiology review. Lumbar xray ordered today to assess low back pain. 4) The patient has had significant conservative care including medications (NSAIDS and narc otics), PT (multiple sessions over the years) and youth care worker. Unfortunately Solo Vasquez continues to have significant discomfort. It appears to me that the pain is prima rily coming from C4/5 and C5/6 facets. Based on the patient's history, physical examination and review of the available imaging th e patient has been diagnosed with pain coming primarily from the lumbar facet joints with no other lumbar pathology considered to be a significant possible source of discomfort. The p atient's pain has been moderate to severe, rated as a 8 usually on a 0-10 scale. The pain i s impacting activities of daily living including driving, cleaning, showering, dressing, brittney ding. The patient has been dealing with this pain for more than 3 months and has failed cons ervative treatment with NSAIDs, PT and a home exercise program therefore therapeutic facet i njections were ordered today. Patient was evaluated by Dr Solano who recommended cervical MBB/RFA. I did feel that Solo Vasquez would be a good candidate for interventional procedur es and I offered a bilateral C4/5 and C5/6 facet injections to be done. He will follow up 3 weeks after neck injections. He must be cleared by nicker prior to injections. We discussed RFA today. A referral to Dr Shoham was placed today to pursue cervical MBB/ RFA. Dizziness: this is likely related to anti-hypertensive medications. Patient may need an medications adjusted. He is most dizzy upon standing after being seated. I will reach out t o PCP regarding this. I spent 30 minutes in visit with Solo Vasquez today with the majority of time spent c ounselling the patient on his diagnosis, options for his care, and coordinating his care. CC: Haugen documented in this encounter Plan of Treatment + +--------+ + + | Name | Priori | Associated Diagnoses | Order Schedule | | | ty | | | + +--------+ + + | FL Facet Injection Cervical | Routin | Osteoarthritis of | Expected: | | | e | spine with | 04/30/2018, Expires: | | | | radiculopathy, | 04/30/2019 | | | | cervical region | | + +--------+ + + + +--------+ + + | Name | Priori | Associated Diagnoses | Order Schedule | | | ty | | | + +--------+ + + | Dr. Ashford_Cervical MBB/RFA | Routin | Kyphosis of | Ordered: 04/30/2018 | | | e | cervical region, | | | | | unspecified kyphosis | | | | | type | | | | | Osteoarthritis of | | | | | spine with | | | | | radiculopathy, | | | | | cervical region | | + +--------+ + + documented as of this encounter Goals + +--------+ + + + + [...] | | | | | | | SMD | + +--------+ + + + + documented as of this encounter Results XR Lumbar Spine 4 + Vw [...] + + | Performing | Address | City[facility] | Phone Number | | Organization | | | | + +---------+ + + | [facility] | | | | + +---------+ + + documented in this encounter Visit Diagnoses + + | Diagnosis | + + | Kyphosis of cervical region, unspecified kyphosis type - Primary | + + | Osteoarthritis of spine with radiculopathy, cervical region | + + | Chronic midline low back pain without sciatica | + + | Dizzy spells Dizziness and giddiness | + + documented in this encounter
--- OUTSIDE RECORDS SUMMARY | ~2018-07-17 | XMS | Encounter Summary ---
Demographics + + + | Address | [address] | | | [place] [address] | + + + | Home Phone | | + + + | Preferred Language | Unknown | + + + | Marital Status | | + + + | Cheondoism Affiliation | 1077 | + + + | Race | Unknown | + + + | Ethnic Group | Unknown | + + + Author + + + | Author | [facility] | + + + | Organization | [facility] | + + + | Address | Unknown | + + + | Phone | Unavailable | + + + Support + + + + + | Name | Relationship | Address | Phone | + + + + + | Terri Vasquez | ELOISE | [address] | | | | | [place] | | | | | [address] | | + + + + + Care Team Providers + +------+ + | Care Fish And Wildlife Warden Name | Role | Phone | + +------+ + | Man Rust MD | PCP | | + +------+ + Encounter Details +--------+ + + + + | Date | Type | Department | Care Team | Description | +--------+ + + + + | 05/31/ | Documentati | Pierre | Farideh Mccarty, | | | 2019 | on Only | [facility] | [address] | | | | | [address] | [place] | | | | | [place] | [address] | | | | | [address] | | | | | | [phone] | | | +--------+ + + + [...] [place] | | | | | | [address] | | | | | | | | +--------+---------+ + + + as of this encounter Visit Diagnoses Not on filein this encounter"
--- OUTSIDE RECORDS SUMMARY | ~2018-07-17 | XMS | Clinical Summary ---
Demographics + + + | Address | [address] | | | [place] [address] | + + + | Home Phone | | + + + | Preferred Language | Unknown | + + + | Marital Status | | + + + | Yarsani Affiliation | 1077 | + + + | Race | Unknown | + + + | Ethnic Group | Unknown | + + + Author + + + | Author | [facility] | + + + | Organization | [facility] | + + + | Address | Unknown | + + + | Phone | Unavailable | + + + Support + + + + + | Name | Relationship | Address | Phone | + + + + + | Terri Mijares | ELOISE | [address] | | | | | [place] | | | | | [address] | | + + + + + Care Team Providers + +------+ + | Care Oceanography Professor Name | Role | Phone | + +------+ + | Man Rust MD | PP | | + +------+ + Allergies + + + + + + | Active Allergy | Reactions | Severity | Noted | Comments | | | | | Date | | + + + + + + | Levofloxacin | Rash | Medium | 07/29/19 | | | | | | 17 | | + + + + + + Current Medications + + +--------+---------+------+------+-------+ | Prescription | Sig. | Disp. | Refills | Star | End | Statu | | | | | | t | Date | s | | | | | | Date | | | + + +--------+---------+------+------+-------+ | allopurinol | Take 300 mg by mouth | | | | | Activ | | (ZYLOPRIM) 300 MG | 2 (two) times | | | | | e | | tablet | daily. | | | | | | + + +--------+---------+------+------+-------+ | amLODIPine | Take 5 mg by mouth | | | | | Activ | | (NORVASC) 5 MG | daily. | | | | | e | | tablet | | | | | | | + + +--------+---------+------+------+-------+ | aspirin 81 MG EC | Take 81 mg by mouth | | | | | Activ | | tablet | daily. | | | | | e | + + +--------+---------+------+------+-------+ | Multiple | Take by mouth. | | | | | Activ | | Vitamins-Minerals | | | | | | e | | (CENTRUM SILVER | | | | | | | | ADULT 50+ PO) | | | | | | | + + +--------+---------+------+------+-------+ | | Place 1 drop into | | | | | Activ | | brimonidine-timolol | both eyes every 12 | | | | | e | | (COMBIGAN) 0.2-0.5 % | (twelve) hours. | | | | | | | ophthalmic solution | | | | | | | + + +--------+---------+------+------+-------+ | lovastatin | Take 20 mg by mouth | | | | | Activ | | (MEVACOR) 20 MG | nightly. | | | | | e | | tablet | | | | | | | + + +--------+---------+------+------+-------+ | metoprolol | Take 100 mg by mouth | | | | | Activ | | (LOPRESSOR) 100 MG | daily. | | | | | e | | tablet | | | | | | | + + +--------+---------+------+------+-------+ | omeprazole | Take 20 mg by mouth | | | | | Activ | | (PRILOSEC) 20 MG | every morning before | | | | | e | | capsule | breakfast. | | | | | | + + +--------+---------+------+------+-------+ | tiotropium | Inhale 18 mcg into | | | | | Activ | | (SPIRIVA) 18 MCG | the lungs daily. | | | | | e | | inhalation capsule | | | | | | | + + +--------+---------+------+------+-------+ | tamsulosin | Take 0.4 mg by mouth | | | | | Activ | | (FLOMAX) 0.4 MG | After dinner. | | | | | e | | capsule | Administer 30 | | | | | | | | minutes after the | | | | | | | | same meal each day. | | | | | | | | Capsules should be | | | | | | | | swallowed whole; do | | | | | | | | not crush, chew, or | | | | | | | | open | | | | | | + + +--------+---------+------+------+-------+ | isosorbide | take 1 tablet by | 90 | 1 | 03/0 | | Activ | | mononitrate (IMDUR) | mouth once daily | tablet | | 1/20 | | e | | 30 MG 24 hr tablet | | | | 14 | | | + + +--------+---------+------+------+-------+ | beclomethasone | Inhale 1 puff into | | | | | Activ | | (QVAR) 80 MCG/ACT | the lungs daily. | | | | | e | | inhaler | | | | | | | + + +--------+---------+------+------+-------+ | Cholecalciferol | Take 2,000 Units by | | | | | Activ | | (VITAMIN D-3 PO) | mouth daily. | | | | | e | + + +--------+---------+------+------+-------+ | [place]-3 Fatty | Take by mouth | | | | | Activ | | Acids (OMEGA 3 PO) | daily. | | | | | e | + + +--------+---------+------+------+-------+ | metoprolol | Take 25 mg by mouth. | | | | | Activ | | (TOPROL-XL) 25 MG 24 | | | | | | e | | hr tablet | | | | | | | + + +--------+---------+------+------+-------+ | albuterol (PROAIR | Inhale 2 puffs into | | | 12/2 | | Activ | | HFA) 108 (90 Base) | the lungs. | | | 2/20 | | e | | MCG/ACT inhaler | | | | 15 | | | + + +--------+---------+------+------+-------+ | warfarin | Take 5 mg by mouth | | | | | Activ | | (COUMADIN) 5 MG | daily. | | | | | e | | tablet | | | | | | | + + +--------+---------+------+------+-------+ Active Problems + + + | Problem | Noted Date | + + + | Kyphosis of cervical region | 03/22/2018 | + + + | Neck pain of over 3 months duration | 03/22/2018 | + + + | Simple chronic bronchitis (HCC) | 09/11/2016 | + + + | Obstructive sleep apnea syndrome | 08/01/2016 | + + + | Asbestos-induced pleural plaque | 08/01/2016 | + + + | Hyperlipidemia | 04/01/2013 | + + + | Coronary atherosclerosis of [place] coronary artery | 04/01/2013 | + + + Encounters +--------+ + + + + | Date | Type | Specialty | Care Team | Description | +--------+ + + + + | 07/10/ | Office | | Freeman Santos, | Atherosclerosis of | | 2019 | Visit | | MD | [place] coronary | | | | | | artery of [place] | | | | | | heart without angina | | | | | | pectoris (Primary | | | | | | Dx) | +--------+ + + + + | 05/31/ | Documentati | | SandraseferinoFarideh treviño, | | | 2018 | on Only | | MD | | +--------+ + + + + from Last 3 Months Immunizations + + + + | Name | Dates Previously Given | Next Due | + + + + | INFLUENZA PF, | 12/20/2016 | | | QUADRIVALENT | | | | (PED/ADOL/ADULT) | | | + + + + | Tdap | 01/09/2012, 12/05/2011 | | + + + + | Zoster (Live) | 01/09/2012 | | + + + + Family History + + +------+ + | Medical History | Relation | Name | Comments | + + +------+ + | Cancer | Mother | | lung cancer, at age 65 | + + +------+ + | Cancer | Sister | | lung cancer, at approx 60years | + + +------+ + + +------+ + + | Relation | Name | Status | Comments | + +------+ + + | Father | | | | + +------+ + + | Mother | | | | + +------+ + + | Sister | | | | + +------+ + + Social History + +-------+ +--------+ [...] on file | | + + + Last Filed Vital Signs + + + + | Vital Sign | Reading | Time Taken | + + + + | Blood Pressure | 120/60 | 07/10/2018 1:43 PM PDT | + + + + | Pulse | 72 | 07/10/2018 1:43 PM PDT | + + + + | Temperature | 36.4 C (97.6 F) | 02/12/2018 11:28 AM PST | + + + + | Respiratory Rate | 20 | 07/06/2017 2:06 PM PDT | + + + + [...] PM PDT | + + + + Plan of Treatment +--------+---------+ + + + | Date | Type | Specialty | Care Team | Description | +--------+---------+ + + + | 09/17/ | Office | | Farideh Mccarty, | | | 2018 | Visit | | MD Wendy Vasquez | | | | | | [place] | | | | | | [phone] | | | | | | | | +--------+---------+ + + + + + + + + | Health Maintenance | Due Date | Last Done | Comments | + + + + + | Vaccine: | | | | | Pneumococcal 65+ | 6 | | | | Low/Medium Risk (1 | | | | | of 2 - PCV13) | | | | + + + + + | Vaccine: Zoster (2 | | 01/09/2012 | | | of 3) | 2 | | | + + + + + | Vaccine: Influenza | | 12/20/2016 | | | (Season Ended) | 9 | | | + + + + + | Vaccine: | | 01/09/2012, 12/05/2011 | | | Dtap/Tdap/Td (3 - | 2 | | | | Td) | | | | + + + + + Results Not on filefrom Last 3 Months Insurance + +--------+ +--------+ + + | Payer | Benefi | Subscriber | Type | Phone | Address | | | t Plan | ID | | | | | | / | | | | | | | Group | | | | | + +--------+ +--------+ + + | [place] - | [place] - | [id number] | Med[employer] | [phone] [address] [address] [place] | | HEALTHC[facility] | [place] | | re | [phone] | [place] [address] | | | | | | | | | | HEALTH | | | | | | | CARE | | | | | + +--------+ +--------+ + + + +--------+ +--------+ + + | Guarantor Name | Accoun | Relation to | Date | Phone | Billing Address | | | t Type | Patient | of | | | | | | | | | | + +--------+ +--------+ + + | SOLO MIJARES | Person | Self [birth year] Home: | [address] | | | al/Fam | | 1941 | [phone] | [place] | | | [place] | | | [phone] | [address] | + +--------+ +--------+ + +
--- OUTSIDE RECORDS SUMMARY | ~2018-07-17 | XMS | Clinical Summary ---
Demographics + + + | Address | [address] | | | [place] [address] | + + + | Home Phone | | + + + | Preferred Language | Unknown | + + + | Marital Status | | + + + | Jainism Affiliation | 1077 | + + + | Race | Unknown | + + + | Ethnic Group | Unknown | + + + Author + + + | Author | [facility] | | | and [place] | + + + | Organization | [facility] | | | and [...] [place] | | | | | [address] | | + + + + + Care Team Providers + +------+ + | Care Mattress Stuffer Name | Role | Phone | + [...] | | + + + +---------+------+------+-------+ | [place]-3 Fatty | Take by mouth | | [...] + + + | Coronary arteriosclerosis in [place] artery | 04/01/2013 | + + + | Arteriosclerotic cardiovascular disease (ASCVD) | 08/09/2012 | + + + | Diverticular disease of colon | 09/14/2009 | + + + + + | Overview: BECCA [id number] Decision | + + + + + [...] + + | Performing | Address | City[facility] | Phone Number | | Organization [...] | | | + +--------+ +--------+-------+---------+--------+ | [facility] | [facility] | [phone] | 03/13/19 | | | Medica | [...] Self | [birth year] | | [address] | | | al/Fam | | 1941 | [phone] | [place] | | | [place] | | | 1 (Home) | [address] | + +--------+ +--------+ + + Advance Directives Patient has advance care planning documents on file. For more information, please contact:[facility] and [facility] [place] [address]
--- OUTSIDE RECORDS SUMMARY | ~2018-07-17 | XMS | Encounter Summary ---
Demographics + + + | Address | [address] | | | [place] [address] | + + + | Home Phone | | + + + | Preferred Language | Unknown | + + + | Marital Status | | + + + | Alevism Affiliation | 1077 | + + + | Race | Unknown | + + + | Ethnic Group | Unknown | + + + Author + + + | Author | [facility] | | | and [place] | + + + | Organization | [facility] | | | [...] [place] | | | | | [address] | | + + + + + Care Team Providers + +------+ + | Care Sole Rounding Machine Operator Name | Role | Phone | + +------+ + | Man Rust MD | PCP | Unavailable | + +------+ + Reason for Visit + + + | Reason | Comments | + + + | Results, Imaging | Lumbar XR | + + + Encounter Details +--------+ + + + + | Date | Type | Department | Care Team | Description | +--------+ + + + + | 04/30/ | Telephone | [facility] | Irving Hernandez, | Results, Imaging | | 2018 | | PHYSIATRY [address] | PA-C [address] | (Lumbar XR ) | | | | [place], | [address] [place] | | | | | [place] [address] | [place] [address] | | | | | [phone] | | | | | | | | +--------+ + + + + Social History + + [...] + + documented as of this encounter Plan of Treatment + +--------+ + + | Name | Priori | Associated Diagnoses | Order Schedule | | | ty | | | + +--------+ + + | FL Facet Injection Lumbar Sacral | Routin | Lumbar spondylosis | Expected: | | | e | | 05/01/2018, Expires: | | | | | 05/02/2019 | + +--------+ + + documented as [...] + + documented as of this encounter Visit Diagnoses + + | Diagnosis | + + | 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
--- OUTSIDE RECORDS SUMMARY | ~2018-07-17 | XMS | Encounter Summary ---
Demographics + + + | Address | [address] [address] | | | [place] [address] | + + + | Home Phone | | + + + | Preferred Language | Unknown | + + + | Marital Status | | + + + | Sikhism Affiliation | 1077 | + + + | Race | Unknown | + + + | Ethnic Group | Unknown | + + + Author + + + | Author | [facility] | | | and [place] | + + + | Organization | [facility] | | | and [...] [place] | | | | | [address] | | + + + + + Care Team Providers + +------+ + | Care Bed Control Specialist Name | Role | Phone | + +------+ + | Man Rust MD | PCP | Unavailable | + +------+ + Encounter Details +--------+ + + + + | Date | Type | Department | Care Team | Description | +--------+ + + + + | 04/30/ | Hospital | [facility] | Irving Hernandez, | Chronic midline low | | 2019 | Encounter | MED CTR XRAY [address] | PA-C [address] | back pain without | | | | [place] | [address] [place] | sciatica | | | | [place] [address] | [place] [address] | | | | | [phone] | | | | | | | [...] + + documented as of this encounter Medications at Time of Discharge + + + +---------+ + + | Medication | Sig | Dispensed | Refills | Start | End Date | | | | | | Date | | + + + +---------+ + + | albuterol (PROAIR | Inhale 2 puffs into | 1 | 10 | 03/03/20 | | | HFA) 90 mcg/puff | the lungs every 4 | Inhaler | | 15 | | | inhalerIndications: | hours as needed for | | | | | | Chronic obstructive | Shortness of Breath. | | | | | | pulmonary disease, | | | | | | | unspecified COPD | | | | | | | type (HCC) | | | | | | + + + +---------+ + + | allopurinol | Take 300 mg by mouth | | 0 | 11/24/19 | | | (ZYLOPRIM) 300 mg | 2 times daily. | | | 12 | | | tablet | | | | | | + + + +---------+ + + | amLODIPine | Take 5 mg by mouth | | 0 | 08/11/19 | | | (NORVASC) 5 mg | Daily. | | | 12 | | | tablet | | | | | | + + + +---------+ + + | aspirin (ASPIRIN | Take 81 mg by mouth | | 0 | 11/24/19 | | | LOW DOSE) 81 MG | Daily. | | | 12 | | | tablet | | | | | | + + + +---------+ + + | | 1 drop into each eye | | 0 | 11/24/19 | | | brimonidine-timolol | twice daily | | | 12 | | | (COMBIGAN) 0.2-0.5% | | | | | | | ophthalmic solution | | | | | | + + + +---------+ + + | Cholecalciferol | Take by mouth | | 0 | | | | (VITAMIN D-3) 1000 | Daily. | | | | | | units CAPS | | | | | | + + + +---------+ + + | ergocalciferol | Take 50,000 Units by | | 0 | | | | (VITAMIN D-2) 50,000 | mouth Once a week. | | | | | | units capsule | FOR 8 WEEKS | | | | | + + + +---------+ + + | isosorbide | Take 1 tablet by | 30 | 0 | 12/06/19 | | | mononitrate (IMDUR) | mouth Daily. 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 | | | 12 | | | tablet | | | | | | + + + +---------+ + + | metoprolol | Take 25 mg by mouth | | 0 | | | | succinate | Daily. | | | | | | (TOPROL-XL) 25 mg 24 | | | | | | | hr tablet | | | | | | + + + +---------+ + + | Multiple | Take 1 tablet by | | 0 | 11/24/19 | | | Vitamins-Minerals | mouth daily | | | 12 | | | (CENTRUM SILVER) | | | | | | | TABS | | | | | | + + + +---------+ + + | [place]-3 Fatty | Take by mouth | | 0 | | | | Acids (OMEGA 3 PO) | Daily. | | | | | + + + +---------+ + + | omeprazole | Take 20 mg by mouth | | 0 | | | | (PRILOSEC) 20 mg | Daily. | | | | | | capsule | | | | | | + + + +---------+ + + | tiotropium | Inhale 18 mcg into | | 0 | | | | (SPIRIVA) 18 mcg | the lungs Daily as | | | | | | inhalation capsule | needed. | | | | | + + + +---------+ + + | warfarin | TAKE ONE TABLET BY | | 0 | | | | (COUMADIN) 5 mg | MOUTH 6 days and 1/2 | | | | | | tablet | tab on Mondays | | | | | + + + +---------+ + + documented as of this encounter Plan of Treatment Not on filedocumented as of this encounter Goals + +--------+ + + + + | Goal | Patien | Associated | Recent Progress | Patient- | Author | | | t Goal | Problems | | Stated? | | | | Type | | | | | + +--------+ + + + + | Exercise 3x per week | Exerci | | | No | Kirsty | | (30 min per time) | se | | | | , Dave | | | | | | | SMD | + +--------+ + + + + documented as of this encounter Procedures + +--------+ + + + | [...] section. | + +--------+ + + + documented in this encounter Results XR Lumbar Spine 4 [...] + + | Performing | Address | City/State/Zipcode | Phone Number | | Organization | | | | + +---------+ + + | [facility] | | | | + +---------+ + + documented in this encounter Visit Diagnoses + + | Diagnosis | + + | Chronic midline low back pain without sciatica | + + documented in this encounter"
--- OUTSIDE RECORDS SUMMARY | ~2018-07-17 | XMS | Encounter Summary ---
Demographics + + + | Address | [address] | | | [place] [address] | + + + | Home Phone | | + + + | Preferred Language | Unknown | + + + | Marital Status | | + + + | Roman Catholic Affiliation | 1077 | + + + | Race | Unknown | + + + | Ethnic Group | Unknown | + + + Author + + + | Author | [facility] | | | and [place] | + + + | Organization | [facility] | | | [...] [place] | | | | | [address] | | + + + + + Care Team Providers + +------+ + | Care Actuarial Associate Name | Role | Phone | + +------+ + | Man Rust MD | PCP | Unavailable | + +------+ + Encounter Details +--------+ + + + + | Date | Type | Department | Care Team | Description | +--------+ + + + + | 04/30/ | Hospital | [facility] | Irving Hernandez, | Chronic midline low | | 2019 | Encounter | MED CTR XRAY [address] | PA-C [address] | back pain without | | | | [place] | [address] [place] | sciatica | | | | [place] [address] | [place] [address] | | | | | [phone] | | | | | | | [...] + + + +---------+ + + | [place]-3 Fatty | Take by mouth | | [...]
--- OUTSIDE RECORDS SUMMARY | ~2018-07-17 | XMS | Encounter Summary ---
Demographics + + + | Address | [address] | | | [place] [address] | + + + | Home Phone | | + + + | Preferred Language | Unknown | + + + | Marital Status | | + + + | Caodaism Affiliation | 1077 | + + + | Race | Unknown | + + + | Ethnic Group | Unknown | + + + Author + + + | Author | [facility] | | | and [place] | + + + | Organization | [facility] | | | and [...] [place] | | | | | [address] | | + + + + + Care Team Providers + +------+ + | Care Senior Java J2Ee Developer Name | Role | Phone | + [...] cervical | [address] | [address] | | | | | region, | [address] | [address] | | | | | unspecified | [address] | [place] | | | | | kyphosis | [place], | [address] | | | | | type | [place] [address] | Phone: | | | | | Osteoarthrit | Phone: | [phone] | | | | | is of spine | [phone] | Fax: | | | | | with | Fax: | [phone] | | | | | radiculopath | [phone] | | | | | | y, [...] + + | 04/30/ | Office | [facility] | Irving Hernandez, | Kyphosis of cervical | | 2019 | Visit | PHYSIATRY [address] | PA-C [address] | region, unspecified | | | | [place], | [address] [place] | kyphosis type | | | | [place] [address] | [place] [address] | (Primary Dx); | | | | [phone] | [phone] | Osteoarthritis of | | | | [...] from the original. Must be cleared by counterintelligence agent/coumadin provider prior to cervical facet injections. Back xray ordered today. We will call with results. Cervical Facet pain and half-way relief: RFA (radiofrequency ablation) can relieve symptoms for 1-[address] Ashford in the [facility] offers this service. Referral placed today. Talk with PCP regarding blood pressure medications and dizziness. --------- Facet Pain: Visit this web link for a short, and informative video: [email or web address] The facet joint is located when the [...] of blood sugars if you are diabetic. detention risk can lead to osteoporosis which is [...] not feel pain. You must have a wheelchair van driver to get home from the hospital. [...] disk, and irritate nerves. Date Last Reviewed: 12/28/201419993577-8379 [employer]. [address] [place] [address], [place] [address]. All righ ts reserved. This information is not intended as a substitute for professional medical care. Always follow your healthcare professional's instructions. documented in this encounter Progress Notes Irving Hernandez PA-C - 04/30/2018 1040 PSTFormatting of this note might be different from graham arriaga original. [address] [facility] [place], [place] [address] FAX: PHYSICAL MEDICINE AND REHABILITATION H&P CHIEF [...] 2017 without benefit. This was done in [place] at the rack. Patient's medications, allergies, past [...] TABS Take 1 tablet by mouth daily [place]-3 Fatty Acids (OMEGA 3 PO) Take by [...] has no apparent deficits with short or extermination supervisor memory. 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 Unfortunately Solo Vasquez continues to [...] neck injections. He must be cleared by counterintelligence agent prior to injections. We discussed RFA today. [...] + + | Performing | Address | City[facility] | Phone Number | | Organization [...]
--- OUTSIDE RECORDS SUMMARY | ~2018-07-17 | XMS | Encounter Summary ---
Demographics + + + | Address | [address] | | | [place] [address] | + + + | Home Phone | | + + + | Preferred Language | Unknown | + + + | Marital Status | | + + + | Synagogue Affiliation | 1077 | + + + | Race | Unknown | + + + | Ethnic Group | Unknown | + + + Author + + + | Author | [facility] | | | and [place] | + + + | Organization | [facility] | | | [...] [address] | | | | | [address] | | + + + + + Care Team Providers + +------+ + | Care Credentialer Name | Role | Phone | + [...] + + | 04/30/ | Telephone | [facility] | Irving Hernandez, | Results, Imaging | | 2018 | | PHYSIATRY [address] | PA-C [address] | (Lumbar XR ) | | | | [place], | [address] [place] | | | | | [place] [address] | [place] [address] | | | | | [phone] | [phone] | | | | | | | [...]
--- OUTSIDE RECORDS SUMMARY | ~2018-07-17 | XMS | Clinical Summary ---
Demographics + + + | Address | [address] | | | [place] [address] | + + + | Home Phone | | + + + | Preferred Language | Unknown | + + + | Marital Status | | + + + | Jehovah'S Witness Affiliation | 1077 | + + + | Race | Unknown | + + + | Ethnic Group | Unknown | + + + Author + + + | Author | [facility] [employer] [facility] | + + + | Organization | [facility] | + + + | Address | Unknown | + + + | Phone | Unavailable | + + + Support + + + + + | Name | Relationship | Address | Phone | + + + + + | Terri Mijares | ELOISE | [address] | | | | | [place] | | | | | [address] | | + + + + + Care Team Providers + +------+ + | Care Appeals Assistant Name | Role | Phone | + [...] | e | + + +--------+---------+------+------+-------+ | [place]-3 Fatty | Take by mouth | | [...] + + + | Coronary atherosclerosis of [place] coronary artery | 04/01/2013 | + + + Encounters +--------+ + + + + | Date | Type | Specialty | Care Team | Description | +--------+ + + + + | 07/10/ | Office | | Freeman Santos, | Atherosclerosis of | | 2019 | Visit | | MD | [place] coronary | | | | | | artery of [place] | | | | | | heart [...] [place] | | | | | | [address] | | | | | | | [...] | [place] - | [place] - | [phone] | [facility] | [phone] | [address] [address] [place] | | [facility] | [place] | | re | [phone] | [place] [address] | | | | | | | [...] Self | [birth year] | Home: | [address] | | | al/Fam | | 1941 | [phone] | [place] | | | [place] | | | [phone] | [address] | + +--------+ +--------+ + +
[~2018-07-17 07:35] MED LIST: ALLOPURINOL300 MG PO; AMLODIPINE BESYL5 MG PO; AMOX TR-K CLV1 EACH PO; ASPIRIN EC325 MG PO; ASPIRIN EC81 MG PO; COMBIGAN EYE DRO5 ML OD; COMBIGAN EYE DRO5 ML OU; DILTIAZEM 24HR120 MG PO; ISOSORBIDE MONO30 MG PO; LOVASTATIN20 MG PO; METOPROLOL TART50 MG PO; MULTI VITAMIN1 EACH PO; OMEPRAZOLE20 MG PO; SPIRIVA18 MCG INH; TAMSULOSIN HCL0.4 MG PO; TOPROL XL100 MG PO; VENTOLIN HFA18 GM INH
== END 2018-07-17 08:40 | disposition home or self-care (01) ==
LOC: ED 07:35
DX: S61.412A Laceration without foreign body of left hand, initial encounter (principal); J44.9 Chronic obstructive pulmonary disease, unspecified; I48.91 Unspecified atrial fibrillation; Z87.891 Personal history of nicotine dependence; Z90.49 Acquired absence of other specified parts of digestive tract; Z88.1 Allergy status to other antibiotic agents; Z79.899 Other long term (current) drug therapy; W18.2XXA Fall in (into) shower or empty bathtub, initial encounter
CPT/HCPCS: 99282

== ENCOUNTER 2020-03-27 09:37 | Emergency (ER) | payer MEDICARE ==
[~2020-03-27] VITALS: Ht 188 cm; Wt 59.0 kg
[2020-03-27] MEDS ORDERED: D3-501250 MCG PO (10:24)
[2020-03-27] MEDS ORDERED: BAYER CHEWABLE81 MG PO (10:24)
[2020-03-27] MEDS ORDERED: MACULAR HEALTH1 EACH PO (10:25)
[2020-03-27] MEDS ORDERED: OMEGA 3 500 SO1 EACH PO (10:25)
[2020-03-27] MEDS ORDERED: WARFARIN SODIUM5 MG PO (10:27)
== END 2020-03-27 12:59 | disposition home or self-care (01) ==
LOC: ED 09:37
DX: S22.31XA Fracture of one rib, right side, initial encounter for closed fracture (principal); R79.1 Abnormal coagulation profile; J92.9 Pleural plaque without asbestos; J98.4 Other disorders of lung; W01.198A Fall on same level from slipping, tripping and stumbling with subsequent striking against other object, initial encounter; J44.9 Chronic obstructive pulmonary disease, unspecified; I25.2 Old myocardial infarction; I48.91 Unspecified atrial fibrillation; Z88.1 Allergy status to other antibiotic agents; Z79.899 Other long term (current) drug therapy; Z79.82 Long term (current) use of aspirin; Z79.01 Long term (current) use of anticoagulants
CPT/HCPCS: 71260; 80048; 85025; 85610; 99284-25; Q9967

== ENCOUNTER 2021-05-04 01:31 | Emergency (ER) | payer MEDICARE ==
[~2021-05-04] VITALS: Ht 188 cm; Wt 49.4 kg
[~2021-05-04 01:31] MED LIST changes: +BAYER CHEWABLE81 MG PO; +D3-501250 MCG PO; +MACULAR HEALTH1 EACH PO; +OMEGA 3 500 SO1 EACH PO; +WARFARIN SODIUM5 MG PO
[2021-05-04] MEDS ORDERED: MS CONTIN15 MG PO (05:21)
--- NOTE | 2021-05-04 13:49 | EKG ---
[facility] [address] [facility] [place] [address] Signed Undetermined rhythm Left axis deviation Right bundle branch block Inferior infarct , age undetermined Abnormal ECG No previous ECGs available Confirmed by EVERARDO BARAJAS MD ([id number] on 05/04/2021 1:48:59 PM Electronically Signed By: EVERARDO BARAJAS MD 05/04/21 1349 PATIENT NAME: MELITON MIJARES GER Electrocardiogram DATE OF : 40 PHYSICIAN: EVERARDO BARAJAS MD REPORT #: [id number] REPORT IS CONFIDENTIAL AND NOT TO BE RELEASED WITHOUT AUTHORIZATION
== END 2021-05-04 06:10 | disposition home or self-care (01) ==
LOC: ED 01:31
DX: J44.9 Chronic obstructive pulmonary disease, unspecified (principal); I20.0 Unstable angina; C34.90 Malignant neoplasm of unspecified part of unspecified bronchus or lung; I25.2 Old myocardial infarction; M10.9 Gout, unspecified; I48.91 Unspecified atrial fibrillation; Z87.891 Personal history of nicotine dependence; Z88.8 Allergy status to other drugs, medicaments and biological substances; Z79.899 Other long term (current) drug therapy
CPT/HCPCS: 36415; 71045; 80048; 84484; 85025; 93005; 93010; 94640; 96374; 99285-25; J2270